=== PATIENT | female | born 1955 | race Caucasian/White ===

== ENCOUNTER 2023-08-30 19:59 | Inpatient (IN) | payer BC, MEDICAID, MEDICARE ==
[2023-08-30] MEDS: Acetaminophen 500 MG Tab PO ONE (22:23)
[2023-08-31] MEDS ORDERED: Sennosides/Docusate Sodium 50-8.6 MG Tab PO PRN (00:26)
[2023-08-31] MEDS ORDERED: Bisacodyl 5 MG Tab PO PRN (00:26)
[2023-08-31] MEDS ORDERED: hydrALAZINE 20 MG/ML SDV IVPUSH PRN (00:26)
[2023-08-31] MEDS ORDERED: Polyethylene Glycol 3350 Powder 17 GM Packet PO PRN (00:26)
[2023-08-31] MEDS ORDERED: Albuterol/Ipratropium 3.0-0.5 MG/3 ML Neb Soln NEB PRN (00:26)
[2023-08-31] MEDS ORDERED: Ondansetron 4 MG/2 ML SDV IVPUSH PRN (00:26)
[2023-08-31] MEDS ORDERED: Metoprolol Tartrate 5 MG/5 ML SDV IVPUSH PRN (00:26)
[2023-08-31] MEDS ORDERED: Magnesium Hydroxide 400 MG/5 ML Susp 30 ML Cup PO PRN (00:26)
[2023-08-31] MEDS ORDERED: Naloxone 2 MG/2 ML Syringe IVPUSH PRN (00:26)
[2023-08-31] MEDS ORDERED: HYDROmorphone 1 MG/ML Syringe IVPUSH PRN (00:26)
[2023-08-31] MEDS ORDERED: Sodium Chloride 0.9% 10 ML Syringe FLUSH PRN (00:26)
[2023-08-31] MEDS: levETIRAcetam 500 MG Tab PO STA (01:40)
[2023-08-31] MEDS: Metoprolol Tartrate 50 MG Tab PO ONE (01:40)
[2023-08-31] MEDS: Apixaban 5 MG Tab PO ONE (01:40)
[2023-08-31] MEDS: Pravastatin 20 MG Tab PO STA (01:41)
[2023-08-31] MEDS: Acetaminophen/oxyCODONE 325-5 MG Tab PO PRN (01:41)
[2023-08-31] MEDS: Temazepam 15 MG Cap PO PRN (01:42)
[2023-08-31 06:19] LABS: BASOPHILS PERCENT AUTO 0.3 % (0.0-1.0); EOSINOPHILS PERCENT AUTO 0.1 % (1.0-3.0); HEMATOCRIT 38.7 % (37.0-47.0); LYMPHOCYTES PERCENT AUTO 29.2 % (20.5-50.1); MEAN CORPUSCULAR HEMOGLOBIN 32.7 pg (27.0-34.0); MEAN CORPUSCULAR HGB CONC 33.6 g/dL (33.0-35.0); MEAN CORPUSCULAR VOLUME 97.5 fL (80-100); MONOCYTES PERCENT AUTO 10.8 % (2-8); NEUTROPHILS PERCENT AUTO 59.6 % (42.2-75.2); PLATELET COUNT,PLT 126 10^3/uL (150-450); RED BLOOD CELL COUNT 3.97 10^6/uL (4.2-5.4); WHITE BLOOD CELL COUNT,WBC 6.9 10^3/uL (5.0-10.0)
[2023-08-31 06:50] LABS: HEMOGLOBIN A1C 6.4 % (<5.7)
[2023-08-31 07:21] LABS: ALBUMIN 2.9 g/dL (3.4-5.0); ANION GAP 18.1 mEq/L (7-13); BILIRUBIN TOTAL 0.8 mg/dL (0.2-1.0); BUN/CREATININE RATIO 14.3 (No establ ref range); CALCIUM 9.4 mg/dL (8.5-10.1); CREATININE 1.4 mg/dL (0.55-1.02); EST CRCL DRUG DOSING (CG) 35.57 mL/min; MAGNESIUM 2.1 mg/dL (1.8-2.4); POTASSIUM,K 4.1 mmol/L (3.5-5.1); PROTEIN TOTAL,TP 6.7 g/dL (6.4-8.2); T4 FREE 0.76 ng/dL (0.76-1.46); TSH ULTRASENSITIVE 2.73 uIU/mL (0.36-3.74)
[2023-08-31 07:29] LABS: A/G RATIO 0.76
[2023-08-31] MEDS ORDERED: Enoxaparin 40 MG/0.4 ML Syringe SUBCUT SCH (09:00)
[2023-08-31] MEDS: Apixaban 5 MG Tab PO SCH (09:16)
[2023-08-31] MEDS: levETIRAcetam 500 MG Tab PO SCH (09:17)
[2023-08-31] MEDS: Escitalopram 10 MG Tab PO SCH (09:18)
[2023-08-31] MEDS: Famotidine 20 MG Tab PO SCH (09:18)
[2023-08-31] MEDS: Metoprolol Tartrate 25 MG Tab PO SCH (09:19)
[2023-08-31] MEDS: Sodium Chloride 0.9% 1,000 ML IV SCH (10:12)
[2023-08-31] MEDS: Sodium Chloride 0.9% 10 ML Syringe FLUSH SCH (10:55)
[2023-08-31] MEDS ORDERED: Menthol/Zinc Oxide Ointment 113 GM Tube TOP PRN (11:32)
[2023-08-31] MEDS: Acetaminophen 325 MG Tab PO PRN (15:50)
[2023-08-31] MEDS: Nystatin Topical Powder 60 GM Bottle TOP SCH (21:27)
[2023-08-31] MEDS: Pravastatin 20 MG Tab PO SCH (21:27)
[2023-09-01 06:43] LABS: BASOPHILS PERCENT AUTO 0.5 % (0.0-1.0); EOSINOPHILS PERCENT AUTO 0.9 % (1.0-3.0); HEMATOCRIT 37.9 % (37.0-47.0); HEMOGLOBIN 12.5 g/dL (12.0-16.0); MEAN CORPUSCULAR HEMOGLOBIN 32.7 pg (27.0-34.0); MEAN CORPUSCULAR VOLUME 99.2 fL (80-100); MONOCYTES PERCENT AUTO 9.8 % (2-8); NEUTROPHILS PERCENT AUTO 58.8 % (42.2-75.2); PLATELET COUNT,PLT 109 10^3/uL (150-450); RED BLOOD CELL COUNT 3.82 10^6/uL (4.2-5.4); WHITE BLOOD CELL COUNT,WBC 5.5 10^3/uL (5.0-10.0)
[2023-09-01 06:58] LABS: ALBUMIN 2.7 g/dL (3.4-5.0); ANION GAP 14.9 mEq/L (7-13); BUN/CREATININE RATIO 18.3 (No establ ref range); CALCIUM 8.8 mg/dL (8.5-10.1); CREATININE 1.26 mg/dL (0.55-1.02); EST CRCL DRUG DOSING (CG) 39.52 mL/min; POTASSIUM,K 3.9 mmol/L (3.5-5.1); PROTEIN TOTAL,TP 6.3 g/dL (6.4-8.2)
[2023-09-01 07:03] LABS: A/G RATIO 0.75
[2023-09-01] MEDS: amLODIPine 5 MG Tab PO SCH (09:02)
[2023-09-01] MEDS: Ezetimibe 10 MG Tab PO SCH (09:03)
[2023-09-01] MEDS: Losartan 25 MG Tab PO SCH (09:03)
[2023-09-02 06:59] LABS: BASOPHILS PERCENT AUTO 0.7 % (0.0-1.0); EOSINOPHILS PERCENT AUTO 4.1 % (1.0-3.0); HEMOGLOBIN 12.8 g/dL (12.0-16.0); LYMPHOCYTES PERCENT AUTO 27.8 % (20.5-50.1); MEAN CORPUSCULAR HEMOGLOBIN 32.7 pg (27.0-34.0); MEAN CORPUSCULAR HGB CONC 32.8 g/dL (33.0-35.0); MEAN CORPUSCULAR VOLUME 99.7 fL (80-100); NEUTROPHILS PERCENT AUTO 59.4 % (42.2-75.2); PLATELET COUNT,PLT 116 10^3/uL (150-450); RED BLOOD CELL COUNT 3.91 10^6/uL (4.2-5.4); WHITE BLOOD CELL COUNT,WBC 4.6 10^3/uL (5.0-10.0)
[2023-09-02 07:03] LABS: ALBUMIN 2.7 g/dL (3.4-5.0); ANION GAP 16.7 mEq/L (7-13); BILIRUBIN TOTAL 0.9 mg/dL (0.2-1.0); CREATININE 1.13 mg/dL (0.55-1.02); EST CRCL DRUG DOSING (CG) 44.07 mL/min; MAGNESIUM 2.1 mg/dL (1.8-2.4); POTASSIUM,K 4.7 mmol/L (3.5-5.1); PROTEIN TOTAL,TP 6.4 g/dL (6.4-8.2)
[2023-09-02 07:28] LABS: A/G RATIO 0.73
[2023-09-03 06:41] LABS: BASOPHILS PERCENT AUTO 0.5 % (0.0-1.0); EOSINOPHILS PERCENT AUTO 2.9 % (1.0-3.0); HEMATOCRIT 37.6 % (37.0-47.0); HEMOGLOBIN 12.5 g/dL (12.0-16.0); LYMPHOCYTES PERCENT AUTO 29.9 % (20.5-50.1); MEAN CORPUSCULAR HEMOGLOBIN 33.3 pg (27.0-34.0); MEAN CORPUSCULAR HGB CONC 33.2 g/dL (33.0-35.0); MEAN CORPUSCULAR VOLUME 100.3 fL (80-100); MONOCYTES PERCENT AUTO 9.9 % (2-8); NEUTROPHILS PERCENT AUTO 56.8 % (42.2-75.2); PLATELET COUNT,PLT 122 10^3/uL (150-450); RED BLOOD CELL COUNT 3.75 10^6/uL (4.2-5.4); WHITE BLOOD CELL COUNT,WBC 4.2 10^3/uL (5.0-10.0)
[2023-09-03 07:00] LABS: ALBUMIN 2.6 g/dL (3.4-5.0); ANION GAP 13.6 mEq/L (7-13); BILIRUBIN TOTAL 0.6 mg/dL (0.2-1.0); CALCIUM 9.1 mg/dL (8.5-10.1); CREATININE 1.09 mg/dL (0.55-1.02); EST CRCL DRUG DOSING (CG) 45.68 mL/min; MAGNESIUM 2.1 mg/dL (1.8-2.4); POTASSIUM,K 4.6 mmol/L (3.5-5.1); PROTEIN TOTAL,TP 6.5 g/dL (6.4-8.2)
[2023-09-03 07:02] LABS: A/G RATIO 0.67
[2023-09-03] MEDS: Loperamide 2 MG Cap PO PRN (17:43)
[2023-09-06] MEDS: Hydrochlorothiazide 25 MG Tab PO ONE (12:35)
[2023-09-07 07:15] LABS: ALBUMIN 3.1 g/dL (3.4-5.0); ANION GAP 13.1 mEq/L (7-13); BILIRUBIN TOTAL 0.7 mg/dL (0.2-1.0); BUN/CREATININE RATIO 19.8 (No establ ref range); CALCIUM 9.8 mg/dL (8.5-10.1); CREATININE 1.16 mg/dL (0.55-1.02); EST CRCL DRUG DOSING (CG) 42.93 mL/min; POTASSIUM,K 4.1 mmol/L (3.5-5.1); PROTEIN TOTAL,TP 7.3 g/dL (6.4-8.2)
[2023-09-07 07:24] LABS: A/G RATIO 0.74
[2023-09-07] MEDS: Hydrochlorothiazide 25 MG Tab PO SCH (09:46)
[2023-09-07 11:15] VITALS: BP 156/73; PULSE 63
== END 2023-09-07 10:50 | disposition home or self-care (01) | DRG 948 ==
LOC: DL.ED 19:59 → DL.MS 23:25 → OBSVTOIN 09-01 12:13
PROVIDERS: ADMIT Internal Medicine; ATTEND Internal Medicine
DX: S82.55XA Nondisplaced fracture of medial malleolus of left tibia, initial encounter for closed fracture (principal); R53.1 Weakness; M62.82 Rhabdomyolysis; N17.9 Acute kidney failure, unspecified; W18.39XA Other fall on same level, initial encounter; E78.5 Hyperlipidemia, unspecified; I10 Essential (primary) hypertension; I48.0 Paroxysmal atrial fibrillation; Z66 Do not resuscitate; G40.909 Epilepsy, unspecified, not intractable, without status epilepticus; E11.65 Type 2 diabetes mellitus with hyperglycemia; E66.01 Morbid (severe) obesity due to excess calories; F32.A Depression, unspecified; E88.09 Other disorders of plasma-protein metabolism, not elsewhere classified; E66.9 Obesity, unspecified; E55.9 Vitamin D deficiency, unspecified; R26.81 Unsteadiness on feet; Z98.51 Tubal ligation status; Z87.891 Personal history of nicotine dependence; Z86.73 Personal history of transient ischemic attack (TIA), and cerebral infarction without residual deficits; W17.89XA Other fall from one level to another, initial encounter
CPT/HCPCS: 36415; 71101-RT; 73030-RT; 73610-LT; 73700-LT; 80053; 82306; 82550; 83036; 83735; 84439; 84443; 85025; 87493; 97161-GP; 97530-GP; 99284; 99285; A9270-GY; J3490; J7030

== ENCOUNTER 2024-04-18 00:05 | Emergency (ER) | payer MEDICARE ==
[2024-04-18 00:34] LABS: O2 DELIVERY DEVICE NON REBR MASK
[2024-04-18 00:35] LABS: HEMATOCRIT 41.1 % (37.0-47.0); HEMOGLOBIN 13.1 g/dL (12.0-16.0); MEAN CORPUSCULAR HEMOGLOBIN 31.8 pg (27.0-34.0); MEAN CORPUSCULAR HGB CONC 31.9 g/dL (33.0-35.0); MEAN CORPUSCULAR VOLUME 99.8 fL (80-100); PLATELET COUNT,PLT 167 10^3/uL (150-450); RED BLOOD CELL COUNT 4.12 10^6/uL (4.2-5.4); WHITE BLOOD CELL COUNT,WBC 15.6 10^3/uL (5.0-10.0)
[2024-04-18 00:41] LABS: O2 SATURATION VENOUS 83.1 % (60-80); PCO2 VENOUS 47 mmHg (41-51); PH,VENOUS 7.28 (7.31-7.41); PO2 VENOUS 63 mmHg (35-42)
[2024-04-18 00:42] LABS: BASOPHILS PERCENT AUTO 0.1 % (0.0-1.0); BICARBONATE,VENOUS 21 mmol/l (19-25); EOSINOPHILS PERCENT AUTO 0.1 % (1.0-3.0); LYMPHOCYTES PERCENT AUTO 9.4 % (20.5-50.1); MONOCYTES PERCENT AUTO 4.7 % (2-8); NEUTROPHILS PERCENT AUTO 85.7 % (42.2-75.2)
[2024-04-18 00:52] LABS: ALANINE AMINOTRANSFERASE,ALT 39 U/L (14-59); ALBUMIN 3.2 g/dL (3.4-5.0); ALKALINE PHOSPHATASE 84 U/L (46-116); ANION GAP 17.4 mEq/L (7-13); ASPARTATE AMNIOTRANSFERASE,AST 28 U/L (15-37); BILIRUBIN TOTAL 0.7 mg/dL (0.2-1.0); BLOOD UREA NITROGEN,BUN 20 mg/dL (7-18); BUN/CREATININE RATIO 16.4 (No establ ref range); CALCIUM 8.8 mg/dL (8.5-10.1); CARBON DIOXIDE,CO2 24 mmol/L (21-32); CHLORIDE,CL 102 mmol/L (98-107); CREATININE 1.22 mg/dL (0.55-1.02); GLUCOSE RANDOM 195 mg/dL (70-99); POTASSIUM,K 4.4 mmol/L (3.5-5.1); PROTEIN TOTAL,TP 7.4 g/dL (6.4-8.2); SODIUM,NA 139 mmol/L (136-145)
[2024-04-18] MEDS: Furosemide 40 MG/4 ML VIAL IVPUSH ONE ×2 (00:53→01:59)
[2024-04-18 00:54] LABS: B-TYPE NATRIURETIC PEPTIDE,BNP 581 pg/ml (0-100)
[2024-04-18] MEDS: Piperacillin/Tazobactam 4.5 GM in Sodium Chloride 0.9% 100 ML IV ONE (00:55)
[2024-04-18 01:03] LABS: A/G RATIO 0.76; ESTIMATED GFR 49 mL/min (>=60)
[2024-04-18 01:16] LABS: LYMPHOCYTES PERCENT MAN 9 % (20-50); MONOCYTES PERCENT MAN 3 % (2-8); SEG NEUTROPHILS PERCENT MAN 88 % (42-75)
[2024-04-18 03:22] LABS: APPEARANCE,URINE CLEAR (CLEAR); BILIRUBIN,URINE NEGATIVE (NEGATIVE); COLOR,URINE YELLOW (YELLOW); GLUCOSE,URINE NEGATIVE (NEGATIVE); KETONES,URINE NEGATIVE (NEGATIVE); LEUKOCYTE ESTERASE,URINE TRACE (NEGATIVE); NITRITE,URINE NEGATIVE (NEGATIVE); OCCULT BLOOD,URINE NEGATIVE (NEGATIVE); PH,URINE 5.5 (5.0-9.0); PROTEIN,URINE NEGATIVE (NEGATIVE); UROBILINOGEN,URINE 0.2 mg/dL (0.2-1.0)
[2024-04-18 03:39] LABS: AMORPHOUS SEDIMENT,URINE MODERATE /HPF (NOT SEEN); BACTERIA,URINE FEW /HPF (0-FEW/HPF); EPITHELIAL CELLS,URINE FEW /HPF (NOT SEEN); MUCUS,URINE FEW /LPF (NOT SEEN); RBC,URINE 0-5 /HPF (0-5); WBC,URINE 0-5 /HPF (0-5/HPF)
[2024-04-18 04:01] VITALS: BP 114/66; PULSE 81
== END 2024-04-18 04:45 ==
LOC: DL.ED 00:05
DX: J18.9 Pneumonia, unspecified organism (principal); I11.0 Hypertensive heart disease with heart failure; I50.9 Heart failure, unspecified; I48.91 Unspecified atrial fibrillation; E78.00 Pure hypercholesterolemia, unspecified; E11.9 Type 2 diabetes mellitus without complications; Z86.73 Personal history of transient ischemic attack (TIA), and cerebral infarction without residual deficits; Z88.8 Allergy status to other drugs, medicaments and biological substances; Z79.01 Long term (current) use of anticoagulants; Z79.899 Other long term (current) drug therapy
CPT/HCPCS: 36415; 51702; 71045; 80053; 81001; 82803; 83605; 83735; 83880; 84484; 85025; 87040; 87077; 87086; 87186; 87428; 93010; 96365; 96375; 99285; J1940; J2543; J3490

== ENCOUNTER 2024-09-24 22:57 | Emergency (ER) | payer MEDICARE ==
[2024-09-24 23:10] VITALS: BP 118/76; PULSE 60
[2024-09-24] MEDS ORDERED: Sodium Chloride 0.9% 10 ML Syringe FLUSH PRN (23:15)
[2024-09-24 23:23] LABS: BASOPHILS PERCENT AUTO 0.5 % (0.0-1.0); EOSINOPHILS PERCENT AUTO 2.6 % (1.0-3.0); LYMPHOCYTES PERCENT AUTO 41.0 % (20.5-50.1); MONOCYTES PERCENT AUTO 10.3 % (2-8); NEUTROPHILS PERCENT AUTO 45.6 % (42.2-75.2); PLATELET COUNT,PLT 94 10^3/uL (150-450); RED BLOOD CELL COUNT 4.15 10^6/uL (4.2-5.4); WHITE BLOOD CELL COUNT,WBC 4.3 10^3/uL (5.0-10.0)
[2024-09-24 23:40] LABS: LACTIC ACID 1.3 mmol/L (0.4-2.0)
[2024-09-24 23:47] LABS: ALANINE AMINOTRANSFERASE,ALT 19 U/L (14-59); ASPARTATE AMNIOTRANSFERASE,AST 16 U/L (15-37); BILIRUBIN TOTAL 0.5 mg/dL (0.2-1.0); BLOOD UREA NITROGEN,BUN 21 mg/dL (7-18); CARBON DIOXIDE,CO2 28 mmol/L (21-32); CHLORIDE,CL 104 mmol/L (98-107); CREATININE 1.19 mg/dL (0.55-1.02); GLUCOSE RANDOM 161 mg/dL (70-99); POTASSIUM,K 3.6 mmol/L (3.5-5.1); PROTEIN TOTAL,TP 7.1 g/dL (6.4-8.2); SODIUM,NA 137 mmol/L (136-145)
[2024-09-24 23:50] LABS: A/G RATIO 0.78; ESTIMATED GFR 50 mL/min (>=60)
[2024-09-25 01:25] LABS: APPEARANCE,URINE CLEAR (CLEAR); GLUCOSE,URINE NEGATIVE (NEGATIVE); OCCULT BLOOD,URINE TRACE-INTACT (NEGATIVE)
[2024-09-25 01:33] LABS: EPITHELIAL CELLS,URINE RARE /HPF (NOT SEEN)
[2024-09-25 01:50] LABS: INR 1.0 (0.9-1.2); PTT,PARTIAL THROMBOPLSTIN TIME 27.2 SEC (22.0-34.0)
[2024-09-25 02:11] LABS: B-TYPE NATRIURETIC PEPTIDE,BNP 232 pg/ml (0-100)
== END 2024-09-25 07:00 | disposition home or self-care (01) ==
LOC: DL.ED 22:57
DX: G81.92 Hemiplegia, unspecified affecting left dominant side (principal); I48.91 Unspecified atrial fibrillation; E78.00 Pure hypercholesterolemia, unspecified; I10 Essential (primary) hypertension; E11.9 Type 2 diabetes mellitus without complications; Z88.8 Allergy status to other drugs, medicaments and biological substances; Z79.01 Long term (current) use of anticoagulants; Z79.899 Other long term (current) drug therapy
CPT/HCPCS: 36415; 70450; 71045; 80053; 81001; 83605; 83880; 84145; 84484; 85025; 85379; 85610; 85730; 87428-QW; 93005; 99285